=== PATIENT | male | born 1995 ===

== ENCOUNTER 2019-01-09 18:18 | Emergency (ER) | payer BC ==
[2019-01-09 18:22] VITALS: BP 139/82
[2019-01-09 18:40] VITALS: BMI 34.9
[2019-01-09 19:17] VITALS: PULSE 84; RESP 19; TEMP 98.5; O2SAT 96
[2019-01-09] MEDS ORDERED: Tdap Vaccine 0.5 ml Vial (10-64 yrs) IM ONE ×2 (19:39→19:44)
[2019-01-09] MEDS ORDERED: Lidocaine 1% Inj (20ml) INFIL ONE (19:54)
[2019-01-09] MEDS ORDERED: Lidocaine Hydrochloride 5 ML INJ ONE (20:03)
[2019-01-09] MEDS ORDERED: Bacitracin 500 Units/gm Oint Foilpak UD TOP ONE (20:11)
[2019-01-09] MEDS ORDERED: Bacitracin 500 Units/gm Oint Foilpak UD ONE (20:16)
--- NOTE | 2019-01-09 20:16 | C.PDOC ---
History Of Present Illness 23-year-old male presents to the ED for evaluation after sustaining a laceration to his left palm prior to arrival. Patient states that he was cutting an avocado when the knife slipped, causing him to injure his left palm. Patient denies any other injuries at this time. Patient states he is not UTD with Tetanus immunization. Chief Complaint (Nursing): Abnormal Skin Integrity History Per: Patient History/Exam Limitations: no limitations Onset/Duration Of Symptoms: Hrs Current Symptoms Are (Timing): Still Present Location Of Injury: Left: Hand (palm ) Quality Of Symptoms: Painful Additional History Per: Patient Past Medical History Reviewed: Historical Data, Nursing Documentation, Vital Signs Vital Signs: Last Vital Signs Temp 98.5 F 01/09/19 18:22 Pulse 84 01/09/19 18:22 Resp 19 01/09/19 18:22 BP 139/82 01/09/19 18:22 Pulse Ox 96 01/09/19 18:22 Primary Care Provider: FAMILY PROVIDER,NO - Medical History PMH: No Chronic Diseases Surgical History: No Surg Hx Family History: States: Unknown Family Hx - Social History Hx Alcohol Use: Yes Hx Substance Use: No - Immunization History Hx Tetanus Toxoid Vaccination: No Hx Influenza Vaccination: No Hx Pneumococcal Vaccination: No Review Of Systems Constitutional: Negative for: Weakness Gastrointestinal: Negative for: Nausea, Vomiting Musculoskeletal: Positive for: Hand Pain. Negative for: Arm Pain Skin: Positive for: Other (laceration to left palm ). Negative for: Bruising Neurological: Negative for: Numbness Physical Exam - Physical Exam Appears: Non-toxic, No Acute Distress Skin: Normal Color, Warm, Dry, Other (1.5cm laceration to left palm, no active bleeding ) Head: Atraumatic, Normacephalic Extremity: Normal ROM, Capillary Refill (less than 2 seconds ), No Deformity, No Swelling Pulses: Left Radial: Normal, Right Radial: Normal Neurological/Psych: Oriented x3, Normal Speech, Normal Cognition, Normal Motor, Normal Sensation ED Course And Treatment O2 Sat by Pulse Oximetry: 96 (on RA) Pulse Ox Interpretation: Normal Laceration - Laceration Repair left palm Wound Length (In cm): 1.5 Description Of Wound: Linear Wound Cleansed With: Sterile Saline Anesthesia: Lidocaine 1% Wound Examination: Irrigated With Saline, No FB With Wound Exploration, No Tendon Injury With Wound Exploration Wound Closure: Suture (two, 4-0 Ethilon ) Suture Technique And Material Used: Interrupted Wound Complexity: Simple Medical Decision Making Medical Decision Making: Progress: Tetanus immunization administered. Laceration repaired by me (see note). Bacitracin TOP applied. patient stable for discharge Disposition Counseled Patient/Family Regarding: Diagnosis, Need For Followup, Rx Given - Disposition Referrals: [facility] [Outside] Disposition: HOME/ ROUTINE Disposition Time: 20:16 Condition: IMPROVED Additional Instructions: follow up in 7-10 days for suture removal in ED or with PMD apply bacitracin daily Prescriptions: Bacitracin 1 inch TOP DAILY #1 tube Instructions: Wound Care (DC), Laceration Repair With Stitches (DC) Forms: tolingo (Sinhala) - Clinical Impression Clinical Impression: Laceration of left hand - PA / CAFETERIA CASHIER / Resident Statement MD/DO has reviewed & agrees with the documentation as recorded. - Scribe Statement The provider has reviewed the documentation as recorded by the Scribe (Danielle Tejada) All medical record entries made by the Scribe were at my direction and personally dictated by me. I have reviewed the chart and agree that the record accurately reflects my personal performance of the history, physical exam, medical decision making, and the department course for this patient. I have also personally directed, reviewed, and agree with the discharge instructions and disposition.
== END 2019-01-09 20:23 | disposition home or self-care (01) ==
LOC: C.ER 18:18
DX: S61.412A Laceration without foreign body of left hand, initial encounter (principal); W26.0XXA Contact with knife, initial encounter; Z23 Encounter for immunization